=== PATIENT | female | born 1960 | race Caucasian/White ===

== ENCOUNTER → 2017-10-30 | Outpatient (CLI) | payer BC ==
[~2017-10-30] MED LIST: BUPIVACAINE MPF 0.25% 10 ML VIAL. ONE; methylPREDNISolone ACETATE 40 MG/ML VIAL. ONE
== END ==
LOC: SURG 13:24
PROVIDERS: ATTEND Anesthesiology Pain Medicine
DX: M79.1 Myalgia (principal); M19.90 Unspecified osteoarthritis, unspecified site
CPT/HCPCS: 20552; 99203; J1030; J3490

== ENCOUNTER → 2018-01-08 | Outpatient (CLI) | payer BC | LOC: SURG 12:38 | PROVIDERS: ATTEND Anesthesiology Pain Medicine | DX: M54.12 Radiculopathy, cervical region (principal); M79.641 Pain in right hand | CPT/HCPCS: 99213 ==